=== PATIENT | female | born 1955 | race African-American/Black ===

== ENCOUNTER 2016-07-16 19:05 | Inpatient (IN) | payer OTHER, SELFPAY ==
--- NOTE | ~2016-07-16 | CO ---
Unit #: [id number] #: [id number] Patient: ANTHONY WILSON [id number] [address], [place] [address] [id number] I MR#: [id number] NAME: ANTHONY WILSON. ROOM: 317 Age: 61 Sex: F Admission Date: 07/16/2016 : 1955 Attending Physician: Be Flower M.D. Primary Care Physician: Alfie Flores M.D. Consultation Date: 07/17/2016 CONSULTATION REPORT PRIMARY CARE PHYSICIAN Alfie Flores M.D. REASON FOR CONSULTATION Lower GI hemorrhage as well as lower abdominal pain. HISTORY OF PRESENT ILLNESS Ms. Hess is a very pleasant 61-year-old female. The patient was fine until earlier today morning when she had cramping in the lower abdomen. This is quite severe and intense like menstrual cramps followed by substantial hematochezia. The patient had come in to the hospital and on CAT scan found to have thickening of the descending colon. The patient is still having some pain, but for the most part, it is resolved. There was no history of chest pain nor any history of syncope. In fact, she was seen here in 2008 with ischemic colitis. There is no history of fever, chills, or rigors. PAST MEDICAL HISTORY Significant for history of hypothyroidism, hypertension, ischemic colitis in 2008. PAST SURGICAL HISTORY Included total abdominal hysterectomy as well as history of section and hand surgery. SOCIAL HISTORY Lives by herself. Does not smoke. Drinks very rarely. FAMILY HISTORY None of colon, pancreatic cancer, or liver disease. HOME MEDICATIONS Included Synthroid and blood pressure medication, which the patient does not know and her daughter will bring it from home. ALLERGIES The patient has no known drug allergies. REVIEW OF SYSTEMS Detailed review of organ systems does not reveal any recent weight loss. No history of fever, chills, or rigors. No history of headache, seizures, chest pain, or syncope. No history of cough, expectoration, or hemoptysis. No history of dysuria, hematuria, or pyuria. No history of focal seizures or extremity weakness. Rest of the review of organ systems Unit #: [id number] #: [id number] Patient: ANTHONY WILSON is unremarkable. PHYSICAL EXAMINATION GENERAL: She is alert and oriented, and appears comfortable. VITAL SIGNS: Stable with a temperature of 97.9, pulse is 73 per minute and regular, respiratory rate is 16, blood pressure is 120/80. She weighs 197 pounds, her baseline weight has been about 185 pounds in the past. HEENT: She has no pallor, icterus, lymphadenopathy, or peripheral edema. CARDIOVASCULAR: Normal heart sounds. No murmurs on auscultation. LUNGS: Reveals normal breath sounds. Good air entry. ABDOMEN: Soft and nontender. Liver and spleen are not palpable. Bowel sounds normal. DIAGNOSTIC STUDIES LABORATORY RESULTS: Shows a normal CBC and serum chemistry shows normal BUN and creatinine, and electrolytes. Potassium is 2.8 yesterday and it is normalized to 3.7 today. LFTs normal. IMAGING STUDIES: The patient's CT scan of the abdomen shows thickening of the descending colon, which is focal. IMPRESSION Most likely etiology of the patient's presentation is indeed ischemic colitis. A diagnostic colonoscopy is warranted. It is also noteworthy she does have a history of colon polyps and for that reason alone, we will need repeat colonoscopy as well. The procedure to be done tomorrow after the prep later today. The pros and cons of procedure, potential risks, and complications were discussed with the patient and she was reassured. Thank you for asking me to see this pleasant woman. I appreciate the consult. Dictated by... Thang Crisostomo/stefanie TD: 07/18/2016 01:28 JOB #: [id number] CONSULTATION REPORT X Marquis Root MD CONSULTATION REPORT
--- NOTE | ~2016-07-16 | OR ---
Unit #: [id number] #: [id number] Patient: ANTHONY WILSON [id number] [address] [place], [place] [address] [id number] I MR#: [id number] NAME: ANTHONY WILSON. ROOM: [facility] Date of Procedure: 07/18/2016 Admission Date: 07/16/2016 Surgeon: Marquis Root M.D. : 1955 Attending Physician: Romi Anderson M.D. Primary Care Physician: Alfie Flores M.D. OPERATIVE REPORT PRIMARY CARE PHYSICIAN Alfie Flores M.D. PREOPERATIVE DIAGNOSES Hematochezia and cramping in the lower abdomen. CT scan shows colitis in the descending colon. PROCEDURES PERFORMED Colonoscopy and biopsies. POSTOPERATIVE DIAGNOSES The patient had changes suggestive of ischemic colitis involving the splenic flexure and proximal descending colon. The overall findings were compatible that of mild ischemic colitis with localized area of erythema, erosions, ulceration in these area. The rest of the colonic mucosa throughout was normal except for the patient did have a mild sigmoid diverticulosis. No polyps or angiodysplasias were present. The patient did not have any hemorrhoids as well. RECOMMENDATIONS 1. Discontinue IV Flagyl, levofloxacin, IV Protonix, and IV morphine. 2. Start on regular diet. 3. The patient will be discharged home from GI standpoint. 4. Needs to follow up in the office in 3 months' time. SEDATION USED MAC. DESCRIPTION OF PROCEDURE Following detailed explanation of potential risks and complications of a colonoscopy, namely perforation, bleeding, and complications related to sedation, the patient was brought to GI lab and laid in the left lateral decubitus position. A digital rectal examination was performed, which was normal. Lubricated tip of the Olympus video colonoscope was inserted through the anus and advanced under direct vision. The scope was advanced and passed up to sigmoid into descending colon. Multiple small diverticula were seen in this area. The patient was also noted to have localized erythema, erosions, and ulceration in the area of the proximal descending colon and splenic flexure. The changes were fairly localized in this area. Proximally and distally, mucosa being normal. The scope tip was then navigated all the way up to cecum with visualization of the ileocecal valve and the appendiceal orifice. Preparation was good with Unit #: [id number] #: [id number] Patient: ANTHONY WILSON good visualization and photodocumentation was obtained. Successive segments of the colonic mucosa were examined upon withdrawal and other than the changes noted in the splenic flexure and proximal descending colon, no other abnormalities were seen. Appropriate biopsies obtained from the abnormal mucosal areas. The patient had left-sided diverticulosis. No hemorrhoids noted at the anal verge. No polyps or mass lesions were seen. The scope was then withdrawn. The patient returned the recovery area. She tolerated the procedure without any postprocedure complications. Dictated by... Thang Crisostomo/stefanie TD: 07/19/2016 05:48 JOB #: [id number] CC: . Be Flower M.D. OPERATIVE REPORT X Marquis Root MD X PROCEDURE OPERATIVE NOTE
--- NOTE | ~2016-07-16 | DS ---
Unit #: [id number] #: [id number] Patient: ANTHONY WILSON [id number] [facility]. [place], [place] [address] [id number] I MR#: [id number] NAME: ANTHONY WILSON. ROOM: [facility] Age: 61 Sex: F Admission Date: 07/16/2016 : 1955 Discharge Date: 07/19/2016 Attending Physician: Romi Anderson M.D. Primary Care Physician: Alfie Flores M.D. DISCHARGE SUMMARY DIAGNOSES ON ADMISSION 1. Low GI bleeding. 2. Acute colitis. DISCHARGE DIAGNOSES 1. Low GI bleeding, resolved. 2. Acute ischemic colitis, mild. 3. Hypertension. 4. Hypothyroidism. CONSULTANTS Dr. Marquis Root in GI consultation. PROCEDURES PERFORMED The patient had a colonoscopy done, which showed mild ischemic colitis. There was mild sigmoid diverticulosis present. There were no internal hemorrhoids. DIAGNOSTIC DATA IMAGING: The patient had a CT scan of the abdomen and pelvis done, which revealed findings suggestive of left-sided acute colitis. IMAGING: The patient's creatinine is 0.8, sodium 139, potassium 3.6. AST and ALT are within normal limits. White blood cell count 5.3, hemoglobin 12.1, platelets 267. HOSPITAL COURSE The patient is a 61-year-old female who was admitted to [facility] with low GI bleeding. Details are as per admission history and physical. The patient was seen by Dr. Marquis Root in consultation. The patient underwent colonoscopy which revealed mild ischemic colitis. The patient did not have any recurrence of her symptoms. Today the patient is feeling comfortable and wants to go home. PHYSICAL EXAMINATION VITALS: Temperature 98.1, pulse 59 per minute, respiratory rate 18 per minute, blood pressure 140/86. HEENT: No conjunctival congestion. Sclerae nonicteric. NECK: Supple. Trachea central. LUNGS: Breath sounds equal bilaterally. There are no wheezes or crackles. HEART: Regular rate and rhythm. S1 and S2. ABDOMEN: Soft and nontender. Bowel sounds are present in all four quadrants. Unit #: [id number] #: [id number] Patient: ANTHONY WILSON NEUROLOGIC: The patient is alert to person, place and time. Power is 5/5 bilaterally. Sensation is grossly intact. DISCHARGE CONDITION Stable. ACTIVITY As tolerated. DISCHARGE MEDICATIONS 1. Lisinopril 20 mg p.o. daily. 2. Synthroid 50 mcg p.o. daily. Please make note that the patient patient's hydrochlorothiazide was discontinued because of hypokalemia. Therefore, the patient is advised only to take lisinopril. FOLLOWUP 1. The patient is advised to follow up with primary care physician in one week. 2. Follow up with Dr. Marquis Root as recommended. 3. The patient is advised to call primary care physician or go to the emergency room if her condition changes. The plan was discussed in detail with the patient, who showed complete understanding. Dictated by... Thang Ryan TD: 07/19/2016 09:12 JOB #: [id number] CC: Thang Crisostomo M.D. DISCHARGE SUMMARY X Romi Anderson MD X DISCHARGE SUMMARY
--- NOTE | ~2016-07-16 | HP ---
Unit #: [id number] #: [id number] Patient: ANTHONY WILSON [id number] [address] [place], [place] [address] [id number] I MR#: [id number] NAME: ANTHONY WILSON. ROOM: 317 Age: 61 Sex: F Admission Date: 07/16/2016 : 1955 Attending Physician: Be Flower M.D. Primary Care Physician: Alfie Flores M.D. HISTORY AND PHYSICAL CHIEF COMPLAINT Lower GI bleed. DISCUSSION This is a 61-year-old (1) lady with a past medical history of GI bleed in 2008 with colonoscopy that shows ischemic colitis, hypertension, hypothyroid. She presented to the emergency room today with the chief complaint of bright red blood per rectum since this morning around 9 a.m. five to six times. She vomited one time. She is complaining of lower abdominal pain, diffuse, crampy nature and having multiple episodes of diarrhea. She denied chest pain. She denies any other complaint. PAST MEDICAL HISTORY 1. History of hypothyroid. 2. Hypertension. 3. History of GI bleed with colonoscopy in 2008. It shows ischemic colitis. 4. History of . 5. Complete hysterectomy. 6. History of hand surgery. SOCIAL HISTORY The patient lives alone. She does not smoke. She drinks wine occasionally. FAMILY HISTORY Negative for GI disease. HOME MEDICATIONS 1. Synthroid 0.125 mcg daily. 2. Blood pressure medication. She does not know the time. We will find. The daughter went home to bring the medication. TWELVE REVIEW OF SYSTEMS CONSTITUTIONAL: No fever. No chills. CARDIOVASCULAR: No chest pain. No diaphoresis. PULMONARY: No cough. No wheezing. GASTROINTESTINAL: Positive for nausea, vomiting. Positive for diarrhea, bright red blood per rectum and positive for lower abdominal pain. NEUROLOGIC: No headache. No dizziness. PHYSICAL EXAMINATION GENERAL APPEARANCE: A middle-aged female lying in the bed comfortably, Unit #: [id number] #: [id number] Patient: ANTHONY WILSON currently, not in any distress. She is alert, awake, oriented x3, comfortable, not in any distress. VITAL SIGNS: Temperature 98.2. Heart rate 88. Respiratory rate 16. Blood pressure 150 to 107. Oxygen 98% on room air. HEENT: Pupils equal and reactive to light and accommodation. Head is normocephalic, atraumatic. NECK: Supple. No JVD. HEART: S1, S2. Regular rate and rhythm. ABDOMEN: Soft, nontender, nondistended. Bowel sounds positive. EXTREMITIES: Inspection normal. No cyanosis. No clubbing. No edema. NEUROLOGIC: No focal neurologic deficit. DIAGNOSTIC STUDIES LABORATORY: INR is one. Sodium 140, potassium 2.8, chloride 111, CO2 25, glucose 124, BUN 15, creatinine 0.7. LFTs within normal limits. White count 9, hemoglobin 12, hematocrit 38, platelets 318. IMAGING: CT scan shows finding of mild left side colitis. ASSESSMENT AND PLAN 1. Lower GI bleed with abnormal CT scan with left side colitis. Keep the patient on clear liquid diet. IV Protonix. IV Levaquin. IV Flagyl. GI, Dr. Root, to evaluate. Monitor hemoglobin and hematocrit. 2. Hypokalemia. Replace. 3. History of GI bleed in 2008 with colonoscopy showing ischemic colitis. 4. Hypertension. 5. Hypothyroid. 6. DVT prophylaxis. We will place the patient on SCDs. Dictated by Thang Greer/kingsley TD: 07/17/2016 14:57 JOB #: [id number] HISTORY AND PHYSICAL X X HISTORY AND PHYSICAL
--- NOTE | ~2016-07-16 | CT2 ---
[facility] RADIOLOGY TEXT RESULTS PATIENT: ANTHONY WILSON LOCATION: [facility] 317- : 55 UNIT #: [id number] AGE: [address]: Be Flower MD SEX: F ORDER DR: [id number] [facility]. [place], [place] [address] [id number] I MR#: [id number] Acc #: [id number] NAME: ANTHONY WILSON : 1955 SEX: F STUDY DATE/TIME: 07/16/2016 20:38 UNIT: CEDOF ROOM: [id number] STUDY DESCRIPTION: CT Abd and Pelv W Cont Attending Physician: Be Flower M.D. Ordering Physician: Sumeet Benitez M.D. Primary Care Physician: Alfie Flores M.D. MEDICAL IMAGING REPORT This report is preliminary unless electronic signature is present EXAM CT of the abdomen and pelvis with contrast. DATE OF EXAM 07/16/2016 INDICATIONS Rectal bleeding since this morning. PROCEDURE Contrast-enhanced CT of the abdomen and pelvis. 100 mL of Isovue-370. COMPARISON None. TECHNIQUE NOTE: This CT exam was performed with one or more of the following radiation dose reduction techniques: automatic exposure control, adjustment of mA and/or kV according to patient size, and iterative reconstruction. FINDINGS Included lung bases clear. Liver, spleen, kidneys, adrenal glands, pancreas, gallbladder unremarkable. Bowel loops nondilated. There is thickening and mild inflammatory change in the descending colon extending into the sigmoid colon. There are a few sigmoid diverticula. Appendix is normal. PELVIS WITH CONTRAST: Previous hysterectomy. No pelvic mass or fluid. No aggressive appearing bone lesion. IMPRESSION [facility] RADIOLOGY TEXT RESULTS PATIENT: ANTHONY WILSON LOCATION: [facility] 317-01 : 55 UNIT #: [id number] AGE: [address]: Be Flower MD SEX: F ORDER DR: Findings most in keeping with mild left-sided colitis. No evidence for abscess or obstruction. Dictated by... Wood Husain M.D. THIS IS AN ELECTRONICALLY VERIFIED REPORT Wood Husain M.D. at 07/18/2016 7:00 AM AMOR/caden TD: 07/16/2016 23:35 JOB #: [id number] MEDICAL IMAGING REPORT COPY
[~2016-07-16 19:05] MED LIST: BLOOD PRESSURE MED; SYNTHROID PO
[2016-07-16 19:26] LABS: BASOPHIL% 0.5 % (0-2.5); EOSINOPHIL# 0.1 X10e3 (0-0.7); EOSINOPHIL% 0.6 % (0.0-7.0); HEMATOCRIT 38.6 % (35.0-45.0); HEMOGLOBIN 12.7 gm/dL (12.0-16.0); LYMPHOCYTE# 2.8 X10e3 (1.0-3.5); MEAN CELL VOLUME 83.6 FL (83-96); MEAN CORPUSCULAR HEMOGLOBIN 27.4 PG (28-34); MEAN CORPUSCULAR HGB CONC 32.8 g/dL (30-36); MEAN PLATELET VOLUME 8.7 FL (6.5-11.5); MONOCYTE# 1.2 X10e3 (0-1.0); MONOCYTE% 11.9 % (3.0-12.0); NEUTROPHIL# 5.8 X10e3 (1.5-7.1); PLATELET COUNT 318 X10e3 (140-420); RED BLOOD COUNT 4.62 X10e (3.90-5.30); RED CELL DISTRIBUTION WIDTH 14.7 % (11.0-15.5); WHITE BLOOD COUNT 9.8 X10e3 (4.0-10.5)
[2016-07-16 19:30] LABS: DIFF IND NO
[2016-07-16 19:46] LABS: PARTIAL THROMBOPLASTIN TIME 25.7 SECONDS (23.5-31.3); PROTHROMBIN TIME (PATIENT) 10.7 SECONDS (9.6-11.5)
[2016-07-16 19:52] LABS: ALBUMIN SERUM 3.9 g/dL (3.5-5.0); ALKALINE PHOSPHATASE 67 U/L (32-92); ALT (SGPT) 32 U/L (10-40); AST (SGOT) 37 U/L (10-42); BILIRUBIN, DIRECT 0.1 mg/dL (0.0-0.2); BILIRUBIN,INDIRECT 0.5 mg/dL (0.0-0.9); BILIRUBIN,TOTAL 0.6 mg/dL (0.2-2.0); BLOOD UREA NITROGEN 15 mg/dL (9-23); BUN/CREATININE RATIO 21.42; CALCIUM SERUM 8.5 mg/dL (8.4-10.2); CARBON DIOXIDE 25 mmol/L (22-31); CHLORIDE 111 mmol/L (100-111); CREATININE SERUM 0.7 mg/dL (0.6-1.4); GLOM FILT RATE Estimated ABOVE60 mL/min (>60); GLUCOSE FASTING 124 mg/dL (70-110); PROTEIN TOTAL SERUM 7.9 g/dL (6.0-8.3); SODIUM 140 mmol/L (135-145)
[2016-07-16 19:55] LABS: POTASSIUM 2.8 mmol/L (3.5-5.1)
[2016-07-16] MEDS ORDERED: SYNTHROID125 PO (21:56)
[2016-07-16] MEDS ORDERED: CAPOZIDE PO (21:56)
[2016-07-16] MEDS ORDERED: ALDACTAZIDE 50/1 TAB PO (21:58)
[2016-07-16] MEDS ORDERED: LISINOPRIL-HCTZ1 T14 PO (23:13)
[2016-07-17 00:15] LABS: URINE SOURCE CLEAN CATCH
[2016-07-17 00:21] LABS: URINE APPEARANCE CLEAR; URINE BILIRUBIN NEG (NEG); URINE BLOOD 1+ (NEG); URINE COLOR YELLOW; URINE GLUCOSE NEG (NEG); URINE KETONE NEG (NEG); URINE LEUKOCYTE ESTERASE NEG (NEG); URINE NITRATE NEG (NEG); URINE PROTEIN NEG (NEG); URINE SPECIFIC GRAVITY 1.026 (1.003-1.035); URINE UROBILINOGEN 0.2 MG/DL (NEG)
[2016-07-17 00:23] LABS: URINE BACTERIA AUWI NEG (NEGATIVE); URINE SQUAMOUS EPITHELIAL CELL NONE SEEN /[HPF]; UWBCS1 AUWI 0-2 (0-5)
[2016-07-17 00:44] LABS: CULTURE INDICATED? NO
[2016-07-17 01:12] LABS: BASOPHIL% 0.3 % (0-2.5); EOSINOPHIL# 0.1 X10e3 (0-0.7); EOSINOPHIL% 0.9 % (0.0-7.0); HEMATOCRIT 37.4 % (35.0-45.0); HEMOGLOBIN 12.1 gm/dL (12.0-16.0); LYMPHOCYTE# 3.2 X10e3 (1.0-3.5); LYMPHOCYTE% 30.6 % (17.0-45.0); MEAN CELL VOLUME 84.4 FL (83-96); MEAN CORPUSCULAR HEMOGLOBIN 27.3 PG (28-34); MEAN CORPUSCULAR HGB CONC 32.3 g/dL (30-36); MEAN PLATELET VOLUME 8.5 FL (6.5-11.5); MONOCYTE% 9.8 % (3.0-12.0); NEUTROPHIL# 6.1 X10e3 (1.5-7.1); NEUTROPHIL% 58.4 % (40-75); PLATELET COUNT 288 X10e3 (140-420); RED BLOOD COUNT 4.44 X10e (3.90-5.30); RED CELL DISTRIBUTION WIDTH 14.8 % (11.0-15.5); WHITE BLOOD COUNT 10.5 X10e3 (4.0-10.5)
[2016-07-17 01:17] LABS: DIFF IND NO
[2016-07-17 07:16] LABS: HEMATOCRIT 38.2 % (35.0-45.0); HEMOGLOBIN 12.3 gm/dL (12.0-16.0)
[2016-07-17 07:48] LABS: BLOOD UREA NITROGEN 6 mg/dL (9-23); BUN/CREATININE RATIO 8.57; CALCIUM SERUM 8.6 mg/dL (8.4-10.2); CARBON DIOXIDE 25 mmol/L (22-31); CHLORIDE 111 mmol/L (100-111); CREATININE SERUM 0.7 mg/dL (0.6-1.4); GLOM FILT RATE Estimated ABOVE60 mL/min (>60); GLUCOSE FASTING 105 mg/dL (70-110); POTASSIUM 3.7 mmol/L (3.5-5.1); SODIUM 142 mmol/L (135-145)
[2016-07-18 04:34] LABS: HEMATOCRIT 36.9 % (35.0-45.0); MEAN CELL VOLUME 84.5 FL (83-96); MEAN CORPUSCULAR HEMOGLOBIN 27.6 PG (28-34); MEAN CORPUSCULAR HGB CONC 32.6 g/dL (30-36); MEAN PLATELET VOLUME 8.7 FL (6.5-11.5); RED BLOOD COUNT 4.36 X10e (3.90-5.30); RED CELL DISTRIBUTION WIDTH 14.9 % (11.0-15.5); WHITE BLOOD COUNT 6.7 X10e3 (4.0-10.5)
[2016-07-18 04:58] LABS: CALCIUM SERUM 8.4 mg/dL (8.4-10.2); CARBON DIOXIDE 26 mmol/L (22-31); CHLORIDE 110 mmol/L (100-111); CREATININE SERUM 0.7 mg/dL (0.6-1.4); GLOM FILT RATE Estimated ABOVE60 mL/min (>60); GLUCOSE FASTING 107 mg/dL (70-110); POTASSIUM 3.2 mmol/L (3.5-5.1); SODIUM 138 mmol/L (135-145)
[2016-07-18 04:59] LABS: BLOOD UREA NITROGEN <5 mg/dL (9-23); BUN/CREATININE RATIO 7.14
[2016-07-19 05:17] LABS: HEMATOCRIT 36.7 % (35.0-45.0); HEMOGLOBIN 12.1 gm/dL (12.0-16.0); MEAN CORPUSCULAR HEMOGLOBIN 27.7 PG (28-34); MEAN CORPUSCULAR HGB CONC 32.9 g/dL (30-36); MEAN PLATELET VOLUME 8.4 FL (6.5-11.5); RED BLOOD COUNT 4.37 X10e (3.90-5.30); RED CELL DISTRIBUTION WIDTH 14.6 % (11.0-15.5); WHITE BLOOD COUNT 5.3 X10e3 (4.0-10.5)
[2016-07-19 06:21] LABS: BLOOD UREA NITROGEN 5 mg/dL (9-23); BUN/CREATININE RATIO 6.25; CARBON DIOXIDE 26 mmol/L (22-31); CHLORIDE 106 mmol/L (100-111); CREATININE SERUM 0.8 mg/dL (0.6-1.4); GLOM FILT RATE Estimated ABOVE60 mL/min (>60); GLUCOSE FASTING 106 mg/dL (70-110); POTASSIUM 3.6 mmol/L (3.5-5.1); SODIUM 139 mmol/L (135-145)
[2016-07-19] MEDS ORDERED: LISINOPRIL20 MG PO (09:27)
== END 2016-07-19 10:56 | disposition home or self-care (01) | DRG 395 ==
LOC: CED 19:05 → CEDOF 22:15 → C3A PCU 07-17 00:20
PROVIDERS: Emergency Medicine; Internal Medicine; Internal Medicine Gastroenterology
PROC: 0DJD8ZZ Inspection of Lower Intestinal Tract, Via Natural or Artificial Opening Endoscopic (ICD-10-PCS; principal; 2016-07-18 17:25)
DX: K55.039 Acute (reversible) ischemia of large intestine, extent unspecified (principal); I10 Essential (primary) hypertension; E03.9 Hypothyroidism, unspecified; Z90.710 Acquired absence of both cervix and uterus; K57.30 Diverticulosis of large intestine without perforation or abscess without bleeding; E87.6 Hypokalemia
CPT/HCPCS: 36415; 74177; 80048; 80076; 81003; 83735; 85014; 85018; 85025; 85027; 85610; 85730; 86850; 86885; 86900; 86901; 86905; 86922; 88305; 96361; 96365; 96366; 99285; C9113; J1956; J2270; J2405; Q9967